=== PATIENT | female | born 1990 | race African-American/Black ===

== ENCOUNTER 2024-04-25 12:35 | Emergency (ER) | payer OTHER ==
[~2024-04-25] VITALS: Ht 157.5 cm; Wt 95.0 kg
[2024-04-25 12:44] VITALS: TEMP 37.1; O2SAT 100
[2024-04-25 15:47] VITALS: PULSE 75; RESP 18
[2024-04-25] MEDS: IPRATROPIUM/ALBUTEROL 0.5-3(2.5)MG/3ML NEB HHN ONE (15:47)
[2024-04-25] MEDS: PREDNISONE 20MG TABLET PO STA (15:55)
[2024-04-25 17:28] LABS: BASOPHILS % 0.5 % (0.0-2.0); EOSINOPHILS % 2.5 % (0.0-5.0); HEMATOCRIT. 35.5 % (36.0-48.0); HEMOGLOBIN. 11.4 g/dL (12.0-16.0); LYMPHOCYTES % 33.3 % (20.0-50.0); MEAN CORPUSCULAR HEMOGLOBIN 28.4 pg (28.0-32.0); MEAN CORPUSCULAR HGB CONC 32.2 g/dL (31.0-37.0); MEAN CORPUSCULAR VOLUME 88.2 fL (81.0-99.0); MEAN PLATELET VOLUME 7.2 fl (7.4-10.4); MONOCYTES % 11.7 % (2.0-8.0); PLATELET 433 x1000/uL (130-400); RED BLOOD CELL COUNT 4.02 mill/uL (4.2-5.4); RED CELL DISTRIBUTION WIDTH 14.3 % (11.6-14.6); WHITE BLOOD COUNT 9.7 x1000/uL (4.5-11.0)
[2024-04-25 17:31] LABS: CHLORIDE 106 mEq/L (98-107); POTASSIUM 3.9 mEq/L (3.5-5.1); SODIUM 138 mEq/L (136-145)
[2024-04-25 17:32] LABS: CALCIUM 9.3 mg/dL (8.7-10.4); CARBON DIOXIDE 25 mEq/L (21-32)
[2024-04-25 17:37] LABS: CREATININE 0.8 mg/dL (0.6-1.0); GLUCOSE 96 mg/dL (70-105); UREA NITROGEN BLOOD 9 mg/dL (9-23)
[2024-04-25 17:44] LABS: HCG SCREEN NEGATIVE
[2024-04-25 17:59] LABS: TROPONIN I HIGH SENSITIVITY < 4 ng/L (3.0-34)
[2024-04-25] MEDS ORDERED: P20 MT (18:26)
[2024-04-25 18:59] VITALS: BP 135/88; PULSE 83; RESP 18; O2SAT 96
== END 2024-04-25 19:01 | disposition home or self-care (01) ==
LOC: ER 12:35
DX: R06.02 Shortness of breath (principal)
CPT/HCPCS: 80048; 84703; 85025; 85379; 84484; 36415; 71045; 94640; 94070; 99284; J7512; Z7610 ×3